=== PATIENT | male | born 1995 | race Hispanic/Latino ===

== ENCOUNTER 2023-06-06 11:37 | Emergency (ER) | payer SELFPAY ==
[2023-06-06] MEDS ORDERED: TETANUS, DIPHTHERIA TOX,ADULT (TDVAX) 0.5 ML VIAL IM ONE (13:53)
[2023-06-06] MEDS ORDERED: Boostrix 0.5 ML (Tdap) VIAL (>/=7 yrs of age) ONE (13:54)
== END 2023-06-06 14:14 | disposition home or self-care (01) ==
LOC: ERS 11:37
DX: S61.402A Unspecified open wound of left hand, initial encounter (principal); W45.8XXA Other foreign body or object entering through skin, initial encounter; Y93.H1 Activity, digging, shoveling and raking; Z23 Encounter for immunization
CPT/HCPCS: 90471; 90714; 90715